=== PATIENT | female | born 1970 | race Caucasian/White ===

== ENCOUNTER → 2016-08-01 | Outpatient (CLI) | payer BC, OTHER | END | disposition home or self-care (01) | LOC: GMAH 12:32 | PROVIDERS: ATTEND Family Medicine | DX: R03.0 Elevated blood-pressure reading, without diagnosis of hypertension (principal) ==

== ENCOUNTER 2016-08-23 11:27 | Emergency (ER) | payer BC ==
--- NOTE | 2016-08-23 11:42 | ED.PDOC ---
History of Present Illness - General Chief Complaint: Chest Pain/[place] Stated Complaint: chest and back discomfort Time Seen by Provider: 08/23/16 11:41 Source: patient, RN notes reviewed, Vital Signs reviewed Additional Information: Patient with vague history of upper back soreness radiating anteriorly. She says it is worse with ambulation and it has progressively worsened over the past few days. 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 She went to the clinic who sent her here to the ER for an evaluation given concern for possible ACS and evaluation of tachycardia. Pt reports long-standing history of tachycardia (unexplained), anxiety, and HTN. She was recently switched to a new antihypertensive and she was wondering if that had something to do with her symptoms. Her symptoms are reproducible with light palpation. She is not in extremis but she showed some mild discomfort upon arrival to ER. After over an hour of observation and rest she reported feeling better. - History of Present Illness Timing/Duration: unsure Severity: moderate Improving Factors: rest Worsening Factors: movement Associated Symptoms: other - mostly complaining of anxiety and upper back soreness Allergies/Adverse Reactions: Allergies NO KNOWN ALLERGY Allergy (Verified 08/23/16 11:40) Home Medications: Ambulatory Orders Azilsartan Medoxomil-Chlorthal [Edarbyclor] 1 tab PO DAILY 08/23/16 Review of Systems - Review of Systems Constitutional: States: no symptoms reported EENTM: States: no symptoms reported Respiratory: States: no symptoms reported - denies dyspnea Cardiology: States: see HPI Gastrointestinal/Abdominal: States: see HPI - some vague abdominal discomfort Genitourinary: States: no symptoms reported Musculoskeletal: States: see HPI, back pain Skin: States: no symptoms reported Neurological: States: see HPI, anxiety Endocrine: States: no symptoms reported Hematologic/Lymphatic: States: no symptoms reported Past Medical History (General) - Patient Medical History Hx Hypertension: Yes Hx Other PMH: Yes - reported history of anxiety Family Medical History - Family History Mother Family History: Unknown Living Status: Unknown Physical Exam - Physical Exam General Appearance: Agitated - mild, Anxious, Well Nourished - , overweight Eye Exam: bilateral normal Ears, Nose, Throat: hearing grossly normal, normal ENT inspection, normal pharynx Neck: non-tender, full range of motion, supple Respiratory: no respiratory distress, no accessory muscle use Cardiovascular/Chest: tachycardia Gastrointestinal/Abdominal: soft Back Exam: normal inspection, other - grossly tender to light palpation suggestive of myofascial and/or costochondritic pain Extremity: normal range of motion, non-tender, normal inspection Neurologic: artificial plastic eye maker II-XII nml as tested, no motor/sensory deficits, alert, other - appeared agitated at times with poor eye contact. Reported that she didn't want to be here but was sent by the clinic. When she left the ER she was telling her friend (with liberal use of the F-word) that she didn't even want to come to the ER. Skin Exam: normal color Progress - Progress Progress: 08/23/16 11:42 Pt with vague complaint of band-like diaphragmatic soreness with radiation to bilateral upper back. Symptoms worse with laying down and activity. She reports chronic tachycardia. She was recently started on an antihypertensive combination. She does report occasional anxiety. Duration of symptoms - gradually building up over the past few days. Initial EKG with sinus tachycardia 128 bpm and no evidence of STEMI. 08/23/16 11:45 Broad DDx to include ACS, PE, metabolic abnormality, Biliary etiology ( Cholelithiasis, Dyskinesia), Pleurisy, or other Cardiopulmonary or GI etiology. Will start work-up with CBC, CMP, Chest X-ray, d-dimer, BNP, U/A, UDS, and TSH. Will provide support with 1 liter NS and consider a dose of Ativan if unimproved in the next 30 to 45 minutes or sooner upon patient request. 08/23/16 13:10 Labs and x-ray reviewed with patient. She denies taking any illicit drugs or OTC pseudoephedrine that could explain a positive UDS for amphetamines. She has no evidence of ACS, or PE on labs and her CBC, TSH, and CMP are essentially normal. She has reproducible discomfort on exam but she is overall more comfortable than when she arrived. Pt offered Toradol and Ativan and she declined. Pt is stable for discharge home with recommendation to follow-up with PCM and return to ER if condition worsens. Pt agreeable to plan. A friend came to pick her up from the ER. 08/23/16 13:33 Pt's mood and affect concerning for possible substance abuse given UDS finding. But, since patient does not appear to be at risk of harming herself or others, and given her denial of any illicit drug use, Patient suitable for discharge to home with strict return precautions. - Results/Orders Results/Orders: Laboratory Results - last 24 hr 08/23/16 08/23/16 11:49 11:54 WBC 10.7 RBC 5.20 Hgb 14.7 Hct 43.7 MCV 84.1 MCH 28.3 MCHC 33.6 RDW 14.0 Plt Count 380 MPV 7.2 L Absolute Neuts (auto) 7.00 H Absolute Lymphs (auto) 2.70 Absolute Monos (auto) 0.60 Absolute Eos (auto) 0.30 Absolute Basos (auto) 0.10 Neutrophils % 65.3 Lymphocytes % 24.9 Monocytes % 5.9 Eosinophils % 2.8 Basophils % 1.1 D-Dimer, Quantitative < 230 Sodium 135 Potassium 3.8 Chloride 102 Carbon Dioxide 21 Anion Gap 15.8 BUN 17 Creatinine 0.79 BUN/Creatinine Ratio 21.5 H Random Glucose 121 H Serum Osmolality 272.9 L Calcium 9.5 Total Bilirubin 0.3 AST 26 ALT 22 Alkaline Phosphatase 48 Creatine Kinase 73 CK-MB (CK-2) 5.0 H* CK-MB (CK-2) % Not Reportable Troponin I < 0.02 B-Natriuretic Peptide < 5.0 Serum Total Protein 7.6 Albumin 3.9 Globulin 3.7 H Albumin/Globulin Ratio 1.1 TSH 2.02 Urine Color Yellow Urine Appearance Clear Urine pH 6.0 Ur Specific [place] 1.010 Urine Protein Negative Urine Glucose (UA) Negative Urine Ketones Negative Urine Blood Moderate H Urine Nitrite Negative Urine Bilirubin Negative Urine Urobilinogen 0.2 Ur Leukocyte Esterase Negative Urine RBC 5-10 H Urine WBC 0 Ur Epithelial Cells 1-3 Urine Bacteria 0 Urine Opiates Screen Negative Urine Barbiturates Negative Ur Phencyclidine Scrn Negative U Amphetamin/Meth Scrn Positive H U Benzodiazepines Scrn Negative U Cocaine Metab Screen Negative U Cannabinoids Screen Negative - EKG/XRAY/CT EKG: Sinus, Tachy - 128 bpm with no evidence of STEMI XRAY: chest - no acute abnormalities seen Departure - Departure Clinical Impression: Tachycardia, Costochondritis, Anxiety Time of Disposition: 13:22 Disposition: Discharge to Home or Self Care Condition: Fair Departure Forms: ED Discharge - Pt. Copy, Patient Portal Self Enrollment Referrals: Miguel A Burroughs MD [Primary Care Provider] - 1-5 Days Home Medications: Ambulatory Orders Azilsartan Medoxomil-Chlorthal [Edarbyclor] 1 tab PO DAILY 08/23/16 Additional Instructions: Return to ER if condition worsens. Try over the counter ibuprofen/Advil (follow label instructions) for discomfort. Follow-up with primary care provider if condition persists.
[2016-08-23] MEDS ORDERED: SODIUM CHLORIDE 0.9% 1000ML 1,000 ML IVS ONE (11:43)
--- NOTE | 2016-08-23 11:59 | RAD ---
PROCEDURE: Chest,2 Views CLINICAL HISTORY: chest discomfort INDICATION: Same as above COMPARISON: None TECHNIQUE: PA and and lateral chest radiographs were obtained. FINDINGS: The lung ballard are well inflated. There are no discrete airspace infiltrates, pneumothoraces or pleural effusions. The pulmonary vascularity is normal The cardiomediastinal silhouette is unremarkable for patient's age and sex. IMPRESSION: There is no acute pleural-parenchymal process seen in the imaged lung ballard. Place of interpretation: Teleradiology. Electronically signed by: Idris Salazar MD 08/23/2016 11:58 AM TRAFFIC SURVEY TECHNICIAN
[2016-08-23 13:35] VITALS: BP 123/78; TEMP 98.2; O2SAT 100
== END 2016-08-23 13:30 | disposition home or self-care (01) ==
LOC: ER 11:27
DX: M94.0 Chondrocostal junction syndrome [Tietze] (principal); R00.0 Tachycardia, unspecified; F41.9 Anxiety disorder, unspecified

== ENCOUNTER → 2016-10-02 | Outpatient (CLI) | payer BC | LOC: SL 15:48 | PROVIDERS: ATTEND Family Medicine | DX: G47.30 Sleep apnea, unspecified (principal); R06.83 Snoring; I10 Essential (primary) hypertension ==

== ENCOUNTER → 2016-12-23 | Outpatient (CLI) | payer BC | LOC: SL 20:30 | PROVIDERS: ATTEND Family Medicine | DX: G47.39 Other sleep apnea (principal); I10 Essential (primary) hypertension; R06.83 Snoring; G47.10 Hypersomnia, unspecified ==

== ENCOUNTER → 2017-07-20 | Outpatient (CLI) | payer BC ==
--- NOTE | 2017-07-20 12:06 | US ---
EXAM DESCRIPTION: Gall Bladder CLINICAL HISTORY: RUQ positive Anders's sign COMPARISON: None Available. TECHNIQUE: Right upper quadrant ultrasound] FINDINGS: Hepatic steatosis is observed. There is no bile duct dilatation. The common bile duct measures 2.5 mm. The gallbladder is normal and contains no stones. Portions of the pancreas seen appear normal The upper abdominal aorta and the inferior vena cava are poorly visualized. The right kidney is normal in size, shape, and echotexture. IMPRESSION: Hepatic steatosis is observed. Exam is otherwise unremarkable. Electronically signed by: Raul Benito MD 07/20/2017 12:[address]PERVISOR
== END ==
LOC: LAB.O 10:56
PROVIDERS: ATTEND Nurse Practitioner Family
DX: R10.11 Right upper quadrant pain (principal); K76.0 Fatty (change of) liver, not elsewhere classified

== ENCOUNTER → 2018-06-21 | Outpatient (CLI) | payer BC ==
--- NOTE | 2018-06-21 12:40 | CT ---
EXAM DESCRIPTION: CT ABDOMEN AND PELVIS WITH CONTRAST CLINICAL HISTORY: K57.32 left lower quadrant pain, history of diverticulitis COMPARISON: None Available. TECHNIQUE: CT of the abdomen and pelvis are performed during IV bolus administration of routine adult dose of nonionic iodinated contrast. No oral contrast. FINDINGS: In the lower chest, the lung bases are clear. Heart size is normal. CT abdomen The liver, spleen, pancreas, gallbladder, adrenal glands, stomach and kidneys are normal in appearance. No inflammation around the pancreas. No renal stones or hydronephrosis. No bowel dilatation to suggest obstruction. Inflammatory changes are seen around the proximal descending colon centered around a diverticulum consistent with acute focal diverticulitis. Small fluid gas collection is seen extending cephalad from the inflamed diverticulum consistent with microperforation and small microabscess. This measures 1.2 cm. No free intraperitoneal gas is seen. No free air or free fluid. CT pelvis Appendix is not identified. No inflammation around the cecum or terminal ileum or sigmoid colon. There is extensive sigmoid diverticulosis. Bladder and distal ureters are negative for stones. Normal enhancement of pelvic vessels. No inguinal or lower pelvic adenopathy. Uterus and ovaries appear normal. Bone window images are negative for fracture or lytic lesion. Coronal and sagittal reformatted images confirm the findings. Degenerative disc disease at L5-S1 with neural foraminal narrowing. Moderate degenerative changes in the lower T-spine. IMPRESSION: Acute diverticulitis of the proximal descending colon with focal microperforation/microabscess 1.2 cm. This exam was performed according to our departmental dose-optimization program, which includes automated exposure control, adjustment of the mA and/or kV according to patient size and/or use of iterative reconstruction technique. Total DLP equals 1527.39 mGycm. Electronically signed by: Jin Alba MD 06/21/2018 12:39 PM DISASTER RECOVERY CONSULTANT
== END ==
LOC: LAB.O 11:12
PROVIDERS: ATTEND Emergency Medicine
DX: K57.32 Diverticulitis of large intestine without perforation or abscess without bleeding (principal)

== ENCOUNTER 2018-06-23 11:16 | Inpatient (IN) | payer BC ==
--- NOTE | 2018-06-23 11:18 | HP ---
SUPERVISING PHYSICIAN: Bill Franco M.D. CHIEF COMPLAINT: Abdominal pain. HISTORY OF PRESENT ILLNESS: This is a 48 year-old female patient who has had left sided abdominal pain for about a week. It started some time last week and she thought she was constipated, although she does not have a history of constipation. She took some fiber on Thursday and , and by Thursday her pain was so bad that she went to see the nurse practitioner at her physician's office. She put her on Cipro and Flagyl. Over the weekend she had some diarrhea which she associated with the medications and on Thursday went back to see Dr. Rishi Zacarias. He sent her to the hospital to have a CAT scan. The CAT scan showed acute diverticulitis of the proximal descending colon with focal microperforation/microabscess 1.2 cm. He sent her to see Dr. Arizmendi and has pain was quite intense, and had actually worsened over the last 2 days and he sent her to the hospital for a direct admission. She was admitted to the hospital and labs were drawn. PAST MEDICAL HISTORY: 1. Hypertension. 2. Gastroesophageal reflux disease. 3. Rheumatoid arthritis. PAST SURGICAL HISTORY: 1. Appendectomy. 2. Tubal ligation. 3. Tonsillectomy. 4. Trigger finger surgery of her right hand. OUTPATIENT MEDICATIONS: 1. Hydroxychloroquine sulfate. 2. Leflunomide. 3. Desvenlafaxine. ALLERGIES: NO KNOWN DRUG ALLERGIES. 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 She lives in [place]. She denies any tobacco, ETOH or illicit drug use. REVIEW OF SYSTEMS: GENERAL: Positive for low-grade fever and fatigue. Negative for weight changes. HEENT: Negative for sinus pain, ear pain, vision changes or sore throat. RESPIRATORY: Negative for coughing, wheezing or shortness of breath. CARDIAC: Negative for chest pains, palpitations or tachycardia. GASTROINTESTINAL: As per History of Present Illness. GENITOURINARY: Negative for polyuria, dysuria and hematuria. NEUROLOGIC: Negative for headache, seizures or dizziness. PHYSICAL EXAMINATION: VITAL SIGNS: Temperature 97.8, pulse rate 64, blood pressure 133/69, respiratory rate 18, O2 sat 96% on room air. GENERAL: This is a 48 year-old obese female lying in her hospital bed. She is in no acute distress. HEENT: Normocephalic and atraumatic. Pupils are equal and reactive. Oropharynx is clear. NECK: Supple without mass. RESPIRATORY: Essentially clear to auscultation bilaterally. CHEST: There is equal rise and fall of the chest with inspiration and expiration. GASTROINTESTINAL: Abdomen is soft. It is diffusely tender especially in the left upper and left lower quadrant. There is guarding but there is no rebound tenderness. Bowel sounds are hypoactive. EXTREMITIES: No clubbing, cyanosis or edema. NEUROLOGIC: She is awake, alert and oriented times three. Cranial nerves II- XII are grossly intact. LABORATORY: WBCs are 7 with hemoglobin 12 and hematocrit 35.9. Electrolytes are basically within normal limits. Serum osmolality is 270.6. Liver enzymes are within normal limits. CT is as per History of Present Illness. ASSESSMENT: 1. Acute diverticulitis of the proximal descending colon with focal microperforation/ microabscess 1.2 cm. 2. Abdominal pain times 1 week most likely secondary to #1. 3. Gastroesophageal reflux disease. 4. Rheumatoid arthritis on disease modifying therapy 5. Hypertension, stable on medications. PLAN: We will admit the patient to the hospital. She will be placed on bowel rest. I have given her some primary IV fluids as well as some pain medication. She will have Lovenox for DVT prophylaxis as well as a PPI for ulcer prophylaxis. I have consulted Dr. Arizmendi. Will defer to him on recommendations for the patient's care. I have ordered lab for in the morning as well as an abdominal x-ray. She has also got antiemetics. I will also give her Levaquin and Metronidazole IV. We will continue to monitor closely and follow as needed. Dr. Franco is the collaborating physician available for consultation. #[id number] [facility]
[2018-06-23] MEDS ORDERED: SODIUM CHLORIDE 0.9% (FLUSH) 10 ML SYG IV PRN (11:32)
[2018-06-23] MEDS: levoFLOXacin 750MG IV 750 MG in PREMIX BAG 1 BAG IVPB SCH (12:19)
[2018-06-23] MEDS: IV SET AND CAP CHANGE INJ INJ SCH (12:19)
[2018-06-23] MEDS: PANTOPRAZOLE SODIUM IV 40 MG VIAL IV SCH (12:19)
[2018-06-23] MEDS ORDERED: HYDROmorphone HCL INJ 2 MG/ML VIAL IV PRN ×2 (12:52→16:01)
[2018-06-23] MEDS ORDERED: metroNIDAZOLE IV PREMIX 500MG 100 ML IVPB ONE ×2 (13:40→20:02)
[2018-06-23] MEDS: metroNIDAZOLE IV PREMIX 500MG 500 MG in PREMIX BAG 1 BAG IVPB SCH ×2 (14:08→21:32)
[2018-06-23] MEDS ORDERED: HYDROmorphone HCL INJ 2 MG/ML VIAL IV ONE (16:01)
[2018-06-23] MEDS: KCL 20MEQ/D5 1/2NS 1,000 ML IVS PRN (16:34)
[2018-06-23] MEDS ORDERED: SODIUM CHL 0.9% 100ML MINI-BAG 100 ML IVPB ONE ×2 (17:47→20:02)
[2018-06-23] MEDS ORDERED: AMPICILLIN SODIUM INJ 2 GM VIAL ONE ×2 (17:47→20:01)
[2018-06-23] MEDS: AMPICILLIN INJ 2GM 2 GM in SODIUM CHL 0.9% 100ML MINI-BAG 100 ML IVPB SCH ×2 (18:02→22:40)
[2018-06-23] MEDS: HYDROmorphone HCL INJ 2 MG/ML VIAL IV PRN ×2 (18:36→21:27)
[2018-06-23] MEDS: BIFIDOBACTERIUM INFANTIS 4 MG CAP PO SCH (20:44)
[2018-06-23] MEDS: ENOXAPARIN SODIUM 40 MG/0.4 ML SYG SUBCU SCH (20:44)
[2018-06-23] MEDS: SODIUM CHLORIDE 0.9% (FLUSH) 10 ML SYG IV SCH (20:47)
[2018-06-23] MEDS: ONDANSETRON INJ 4 MG/2 ML VIAL IV PRN (21:27)
[2018-06-24] MEDS ORDERED: AMPICILLIN SODIUM INJ 2 GM VIAL ONE ×5 (02:00→20:36)
[2018-06-24] MEDS ORDERED: SODIUM CHL 0.9% 100ML MINI-BAG 100 ML IVPB ONE ×3 (02:00→16:52)
[2018-06-24] MEDS: HYDROmorphone HCL INJ 2 MG/ML VIAL IV PRN ×6 (02:04→20:03)
[2018-06-24] MEDS: KCL 20MEQ/D5 1/2NS 1,000 ML IVS PRN ×2 (03:28→19:54)
[2018-06-24] MEDS ORDERED: metroNIDAZOLE IV PREMIX 500MG 100 ML IVPB ONE ×4 (04:42→20:37)
[2018-06-24] MEDS: AMPICILLIN INJ 2GM 2 GM in SODIUM CHL 0.9% 100ML MINI-BAG 100 ML IVPB SCH ×4 (04:47→22:24)
[2018-06-24] MEDS: ONDANSETRON INJ 4 MG/2 ML VIAL IV PRN ×3 (05:06→19:58)
[2018-06-24] MEDS: metroNIDAZOLE IV PREMIX 500MG 500 MG in PREMIX BAG 1 BAG IVPB SCH ×3 (05:51→21:07)
--- NOTE | 2018-06-24 08:02 | RAD ---
Abdomen 2 views INDICATION: Abdominal pain IMPRESSION: Lung bases are clear. No free air or pneumatosis. Unremarkable bowel gas pattern. No evidence of obstruction. Several small calcifications in the left pelvis possibly phleboliths. Calcification over the left lower sacrum is indeterminate correlate with symptoms. Otherwise no evidence of acute process Electronically signed by: Danny Lee MD 06/24/2018 8:01 AM PLASTIC MOLDER
[2018-06-24] MEDS: BIFIDOBACTERIUM INFANTIS 4 MG CAP PO SCH ×2 (10:04→21:04)
[2018-06-24] MEDS: SODIUM CHLORIDE 0.9% (FLUSH) 10 ML SYG IV SCH ×2 (10:05→21:04)
[2018-06-24] MEDS: levoFLOXacin 750MG IV 750 MG in PREMIX BAG 1 BAG IVPB SCH (12:10)
[2018-06-24] MEDS: PANTOPRAZOLE SODIUM IV 40 MG VIAL IV SCH (12:10)
[2018-06-24] MEDS ORDERED: ALUMINUM & MAGNESIUM HYDROXIDE 30 ML UD ONE (17:20)
--- NOTE | 2018-06-24 17:42 | PN ---
DATE: 06/24/18 SUPERVISING PHYSICIAN: Bill Franco M.D. SUBJECTIVE: The patient is lying in her bed. Her family is at the bedside. She denies any nausea, vomiting or diarrhea. She feels like she is tolerating her clear liquids without any problem, but she still has quite a bit of pain in her abdomen. She is trying to titrate her medications down. OBJECTIVE: VITAL SIGNS: Temperature 97.9, heart rate 91, blood pressure 136/87, respiratory rate 18, O2 sat 96% on room air. RESPIRATORY: Essentially clear to auscultation bilaterally. CARDIAC: Regular rate and rhythm. GASTROINTESTINAL: Abdomen is soft but it is very tender to the left upper and left lower quadrant. It is not as tender as yesterday but she still has quite a bit of pain with palpation. There is no rebound tenderness but she does have some guarding. NEUROLOGIC: She is awake, alert and oriented times three. LABORATORY: WBCs are 7,000 with hemoglobin 11.3, hematocrit 34.1. Electrolytes are basically within normal limits except her calcium is slightly low at 8.3. Abdominal x-ray shows lung bases are clear. No free air or pneumatosis. Unremarkable bowel gas pattern. No evidence of obstruction. Several small calcifications in the left pelvis possibly phleboliths. Calcification of the left lower sacrum is indeterminate. Otherwise no evidence of acute process. All other labs and films have been reviewed via the EMR. ASSESSMENT: 1. Acute diverticulitis of the proximal descending colon with focal microperforation/ microabscess 1.2 cm. 2. Abdominal pain times 1 week most likely secondary to #1. 3. Gastroesophageal reflux disease. 4. Rheumatoid arthritis on disease modifying therapy 5. Hypertension, stable on medications. PLAN: We will continue present supportive care. I have decreased her IV fluids and she will have clear liquids the rest of today. Will start her on a full liquid tomorrow. If she has no pain and tolerates her diet, she can be discharged home on antibiotics and a low residual diet with close followup with Dr. Arizmendi after discharge. We discussed her pain medications and she is trying to wean herself off of those at this time. I will hold on labs for in the morning as those are much improved. We will watch her clinically for her discharge. Otherwise will continue to monitor closely and follow as needed. Dr. Franco is the collaborating physician available for consultation. #[id number] [facility]
[2018-06-24] MEDS ORDERED: SODIUM CHL 0.9% 100ML MINI-BAG 200 ML IVPB ONE (20:36)
[2018-06-24] MEDS: ENOXAPARIN SODIUM 40 MG/0.4 ML SYG SUBCU SCH (21:04)
[2018-06-25] MEDS: HYDROmorphone HCL INJ 2 MG/ML VIAL IV PRN ×3 (02:10→20:32)
[2018-06-25] MEDS: AMPICILLIN INJ 2GM 2 GM in SODIUM CHL 0.9% 100ML MINI-BAG 100 ML IVPB SCH ×4 (04:06→22:23)
[2018-06-25] MEDS: metroNIDAZOLE IV PREMIX 500MG 500 MG in PREMIX BAG 1 BAG IVPB SCH ×4 (05:47→21:43)
[2018-06-25] MEDS: KCL 20MEQ/D5 1/2NS 1,000 ML IVS PRN ×2 (08:11→20:30)
[2018-06-25] MEDS: BIFIDOBACTERIUM INFANTIS 4 MG CAP PO SCH ×2 (09:48→20:30)
[2018-06-25] MEDS: SODIUM CHLORIDE 0.9% (FLUSH) 10 ML SYG IV SCH ×2 (09:49→20:32)
[2018-06-25] MEDS ORDERED: SODIUM CHL 0.9% 100ML MINI-BAG 100 ML IVPB ONE ×4 (10:22→20:20)
[2018-06-25] MEDS ORDERED: AMPICILLIN SODIUM INJ 2 GM VIAL ONE ×3 (10:22→20:20)
[2018-06-25] MEDS: DESVENLAFAXINE SUCCINATE 100 MG PO SCH (11:05)
[2018-06-25] MEDS: LOSARTAN HCTZ PO SCH (11:06)
[2018-06-25] MEDS: FLUCONAZOLE 100 MG TAB PO SCH (11:08)
[2018-06-25] MEDS: NYSTATIN POWDER 15GM BTTL TOP SCH ×3 (12:23→20:31)
[2018-06-25] MEDS: PANTOPRAZOLE SODIUM IV 40 MG VIAL IV SCH (12:28)
[2018-06-25] MEDS: levoFLOXacin 750MG IV 750 MG in PREMIX BAG 1 BAG IVPB SCH (12:42)
[2018-06-25] MEDS: KETOROLAC TROMETHAMINE INJ 30 MG/ML VIAL IV SCH ×2 (12:43→17:59)
[2018-06-25] MEDS ORDERED: metroNIDAZOLE IV PREMIX 500MG 100 ML IVPB ONE ×3 (13:25→20:20)
--- NOTE | 2018-06-25 13:28 | PN ---
SUPERVISING PHYSICIAN: Bill Franco M.D. DATE: 06/25/18 SUBJECTIVE: The patient is lying in her bed. She and her mother are trying to reposition the patient in bed. She feels much better and has tolerated her full liquid diet without any issues. She is still having some pain issues, not so much in her abdomen, but some rib pain and she believes that is from lying around too long. It hurts her to get up and move around. She also said she had not had a bowel movement in a couple of days, but she also has had very little to eat in the last week. We discussed pain issues in her abdomen as well as cutting down on her pain medications, that I would like her to go home when she is not on any narcotics and she agreed. She said she would rather just go home to where she could have Tylenol and realizes this is a very slow process. OBJECTIVE: VITAL SIGNS: Afebrile with temperature 98. Heart rate 93. Blood pressure 112/72. Respiratory rate 20. O2 saturation 97% on room air. RESPIRATORY: Essentially clear to auscultation bilaterally. CARDIAC: Regular rate and rhythm. GASTROINTESTINAL: Abdomen is rounded, but soft. It is very tender in the left upper quadrant, somewhat less tender in the left lower quadrant. There is no rebound tenderness, but there is guarding. NEUROLOGIC: She is awake, alert and oriented times three. LABORATORY: CBC is basically within normal limits. Electrolytes are within normal limits. BUN is less than 5, creatinine 0.54. Calcium is slightly low at 8.3. All other labs and films have been reviewed via the EMR. ASSESSMENT: 1. Acute diverticulitis of the proximal descending colon with focal microperforation/ microabscess 1.2 cm. 2. Abdominal pain times 1 week most likely secondary to #1. 3. Gastroesophageal reflux disease. 4. Rheumatoid arthritis on disease modifying therapy 5. Hypertension, stable on medications. PLAN: We will continue present supportive care. We are weaning her down off of her Dilaudid and have changed her to [place]. I am also going to give her some Toradol for what seems like musculoskeletal pain in her left rib area. I will give her 4 doses of that. She will continue with her antibiotics and preferably will be off pain medications when she leaves here. She will have to be on a low-residue diet and followup with Dr. Arizmendi after she completes 2 weeks of antibiotics. Otherwise, we will continue to monitor the patient and follow as needed. #[id number] [facility]
[2018-06-25] MEDS: ENOXAPARIN SODIUM 40 MG/0.4 ML SYG SUBCU SCH (20:29)
[2018-06-25] MEDS: ALPRAZolam 0.5 MG TAB PO PRN (20:30)
[2018-06-26] MEDS: KETOROLAC TROMETHAMINE INJ 30 MG/ML VIAL IV SCH ×2 (00:06→06:19)
[2018-06-26] MEDS: AMPICILLIN INJ 2GM 2 GM in SODIUM CHL 0.9% 100ML MINI-BAG 100 ML IVPB SCH ×3 (04:08→17:16)
[2018-06-26] MEDS ORDERED: SODIUM CHL 0.9% 100ML MINI-BAG 100 ML IVPB ONE ×3 (04:30→19:33)
[2018-06-26] MEDS ORDERED: AMPICILLIN SODIUM INJ 2 GM VIAL IVPB ONE (04:30)
[2018-06-26] MEDS: metroNIDAZOLE IV PREMIX 500MG 500 MG in PREMIX BAG 1 BAG IVPB SCH ×3 (05:35→22:19)
[2018-06-26] MEDS: KCL 20MEQ/D5 1/2NS 1,000 ML IVS PRN (08:54)
[2018-06-26] MEDS: BIFIDOBACTERIUM INFANTIS 4 MG CAP PO SCH ×2 (09:25→21:06)
[2018-06-26] MEDS: FLUCONAZOLE 100 MG TAB PO SCH (09:25)
[2018-06-26] MEDS: LOSARTAN HCTZ PO SCH (09:28)
[2018-06-26] MEDS: DESVENLAFAXINE SUCCINATE 100 MG PO SCH (09:28)
[2018-06-26] MEDS: SODIUM CHLORIDE 0.9% (FLUSH) 10 ML SYG IV SCH ×2 (09:53→21:07)
[2018-06-26] MEDS: NYSTATIN POWDER 15GM BTTL TOP SCH ×4 (09:53→21:12)
[2018-06-26] MEDS ORDERED: AMPICILLIN SODIUM INJ 2 GM VIAL ONE ×3 (10:12→19:33)
[2018-06-26] MEDS ORDERED: SODIUM CHL 0.9% 100ML MINI-BAG 0 ML IVPB ONE (10:12)
[2018-06-26] MEDS: levoFLOXacin 750MG IV 750 MG in PREMIX BAG 1 BAG IVPB SCH (12:00)
[2018-06-26] MEDS ORDERED: metroNIDAZOLE IV PREMIX 500MG 0 ML IVPB ONE (14:16)
[2018-06-26] MEDS: PANTOPRAZOLE SODIUM IV 40 MG VIAL IV SCH (14:32)
[2018-06-26] MEDS: IV SET AND CAP CHANGE INJ INJ SCH (14:33)
[2018-06-26] MEDS ORDERED: SODIUM CHLORIDE 0.9% (FLUSH) 10 ML SYG IV ONE (18:30)
[2018-06-26] MEDS: ACETAMINOPHEN W/COD #3 TAB 1 EA TAB PO PRN (18:36)
[2018-06-26] MEDS ORDERED: metroNIDAZOLE IV PREMIX 500MG 100 ML IVPB ONE (19:34)
[2018-06-26] MEDS: ENOXAPARIN SODIUM 40 MG/0.4 ML SYG SUBCU SCH (21:06)
[2018-06-26] MEDS: AMPICILLIN 500 MG CAP PO SCH (22:20)
[2018-06-26] MEDS: metroNIDAZOLE 500 MG TAB PO SCH (22:20)
--- NOTE | 2018-06-26 22:26 | PN ---
DATE: 06/26/18 SUPERVISING PHYSICIAN: Bill Franco M.D. SUBJECTIVE: The patient has been advanced in her diet and still continues to have some pain, she notes, to the left lower quadrant, but not as intense as admission. She has been afebrile. She has been ambulating. She is looking forward to going home if possible. I did discuss with her today that will advance her to a low residual diet and work to get her off IV medicine for pain control to Tylenol #3, and hopefully if she does tolerate this later today she could possibly go home or if not tomorrow. OBJECTIVE: VITAL SIGNS: temperature 98.6, pulse 102, blood pressure 130/83, respirations 20, satting 97% on room air. I's and O's show a positive balance of 1180 with 2580 in, 1400 out. She has had 1 bowel movement that she described as mucousy. GENERAL: The patient is resting in a chair. Appears to be comfortable in no acute distress. She is alert. CHEST: Lungs were clear to auscultation. HEART: Regular rate and rhythm. ABDOMEN: Obese but soft to palpation but there is some pain noted on deep palpation to the left quadrant area. No rebound tenderness. No guarding. No peritoneal signs. EXTREMITIES: Without any clubbing, cyanosis or edema. NEUROLOGIC: She is alert and oriented times three. LABORATORY: Her labs today show that she has been stable for 2 days now with no repeat labs. RADIOLOGY: There has been no repeat radiographic studies. ASSESSMENT: 1. Acute diverticulitis of the proximal descending colon with focal microperforation/ microabscess measuring 1.2 cm responding well to medical conservative treatment measures. 2. Abdominal pain secondary to #1, improving with treatment. 3. Gastroesophageal reflux disease, stable. 4. Rheumatoid arthritis on disease modifying therapy. 5. Hypertension, stable on medications. PLAN: I was trying to hope to get her home today, however the patient still has a little bit of pain with meals and is a little anxious. She was able to transition off the Dilaudid and onto oral medications. I again discussed with her ambulation as much as possible and that we will hopefully be able to discharge tomorrow. I have called prescriptions in for discharge anticipation tomorrow to [facility] and hopefully she can discharge on pain management with Tylenol #3. Until she can discharge to outpatient management will continue to monitor and treat as needed. #[id number] [facility]
[2018-06-27] MEDS: ACETAMINOPHEN W/COD #3 TAB 1 EA TAB PO PRN ×2 (00:40→04:14)
[2018-06-27] MEDS: AMPICILLIN 500 MG CAP PO SCH ×2 (04:14→10:23)
[2018-06-27] MEDS: ALPRAZolam 0.5 MG TAB PO PRN (04:16)
[2018-06-27] MEDS: metroNIDAZOLE 500 MG TAB PO SCH (06:11)
[2018-06-27 06:59] VITALS: O2SAT 99
[2018-06-27] MEDS: DESVENLAFAXINE SUCCINATE 100 MG PO SCH (09:12)
[2018-06-27] MEDS: BIFIDOBACTERIUM INFANTIS 4 MG CAP PO SCH (09:12)
[2018-06-27] MEDS: LOSARTAN HCTZ PO SCH (09:12)
[2018-06-27] MEDS: FLUCONAZOLE 100 MG TAB PO SCH (09:12)
[2018-06-27] MEDS ORDERED: MAGNESIUM HYDROXIDE 30 ML UD PO ONE (09:22)
[2018-06-27] MEDS: SODIUM CHLORIDE 0.9% (FLUSH) 10 ML SYG IV SCH (10:23)
[2018-06-27] MEDS: NYSTATIN POWDER 15GM BTTL TOP SCH (10:23)
[2018-06-27 10:51] VITALS: BP 141/90; TEMP 98
--- NOTE | 2018-06-28 09:16 | DS ---
SUPERVISING PHYSICIAN: Bill Franco MD ADMISSION DIAGNOSIS: 1. Acute diverticulitis of the proximal descending colon with focal microperforation/ microabscess 1.2 cm. 2. Abdominal pain times 1 week, most likely secondary to #1. 3. Gastroesophageal reflux disease. 4. Rheumatoid arthritis, on disease modifying therapy 5. Hypertension, stable on medications. DISCHARGE DIAGNOSIS: 1. Acute diverticulitis of the proximal descending colon with focal microperforation/ microabscess measuring 1.2 cm, responded well to medical conservative treatment measures. 2. Abdominal pain secondary to #1, resolved after initiation of treatment. 3. Chronic gastroesophageal reflux disease, stable. 4. Rheumatoid arthritis, on disease modifying therapy. 5. Hypertension, stable on medications. REASON FOR HOSPITALIZATION: This is a 48 year-old female patient who has had left sided abdominal pain for about a week. It started some time last week and she thought she was constipated, although she does not have a history of constipation. She took some fiber on Thursday and , and by Thursday her pain was so bad that she went to see the nurse practitioner at her physician's office. She put her on Cipro and Flagyl. Over the weekend she had some diarrhea which she associated with the medications and on Thursday went back to see Dr. Rishi Zacarias. He sent her to the hospital to have a CAT scan. The CAT scan showed acute diverticulitis of the proximal descending colon with focal microperforation/microabscess 1.2 cm. He sent her to see Dr. Arizmendi and has pain was quite intense, and had actually worsened over the last 2 days and he sent her to the hospital for a direct admission. She was admitted to the hospital and labs were drawn. LABORATORY: White count on admission was 7,000 as well as at discharge. Hemoglobin and hematocrit stable at 11.3 and 34.1, respectively. Platelet count 436,000. Differential never did show a left shift. Chemistries showed normal electrolytes both on admission and at discharge with potassium 3.7, BUN less than 5, creatinine 0.54. Liver functions were all within normal limits. Urinalysis was within normal limits. MICROBIOLOGY: No specimens submitted. RADIOLOGY: She had a single abdominal x-ray which showed lung bases clear, no free air or pneumatosis, unremarkable bowel gas pattern, no evidence of obstruction. Otherwise, no acute process. Please see that report for full details. She had an abdominopelvic CT on 06/21/18, two days prior to admission and that CT showed acute diverticulitis in the proximal descending colon with focal microperforation/abscess of 1.2 cm. Please refer to that report for full details. HOSPITAL COURSE: Ms. Rodriges was admitted for acute diverticulitis with possible abscess. She was started on medical therapy with antibiotics including ampicillin, Levaquin and Flagyl. She was made NPO, given fluids and pain management. Her diet was advanced to clear liquid and then to a low residual diet. Her pain had resolved, she was ambulating, tolerating diet and having bowel movements. She was afebrile and stable with vital signs at discharge showing temperature 98.0, pulse 94, blood pressure 141/90, respirations 20, oxygen saturation 99% on room air. It was felt that she had clinically progressed to a stable condition and could continue with outpatient management and followup with Dr. Arizmendi. PHYSICAL EXAMINATION ON DISCHARGE: GENERAL: The patient was resting comfortably and appeared to be in no acute distress. CHEST: Clear to auscultation bilaterally. HEART: Regular rate and rhythm. ABDOMEN: Soft, nontender. No rebound tenderness. No peritoneal signs. Bowel sounds present. EXTREMITIES: Without any cyanosis, clubbing or edema. NEUROLOGIC: She was alert and oriented x3. PLAN: Ms. Rodriges was discharged on 06/27/18 with instructions to followup with Dr. Ruvalcaba and Dr. Arizmendi next week, to call their offices on Thursday to schedule appointments. She was encouraged to push p.o. fluids to prevent dehydration. She was instructed on a low fiber, low residual diet. She was to take her new medications as prescribed. She was instructed to return to the hospital should she have any concerning or worsening symptoms including increasing abdominal pain, fever, nausea or vomiting or changes concerning her bowels. Diet at discharge was low fiber, low residual. Activity to increase as tolerated. Prescriptions at discharge included: 1. Tylenol #3, 1 q.4h. as needed, #60, no refills. 2. Ampicillin 500 mg 4 times day, #28, no refills. 3. Diflucan tablet 150 mg once if development of yeast infection, no refills. 4. Levaquin 750 mg, #8, no refills. 5. Flagyl 500 mg 3 times a day, #21, no refills. 6. Nystatin 100,000 units per mL, 5 mL swish and swallow 4 times a day if thrush develops. 7. [id number] probiotic of choice. DISPOSITION: The patient was discharged to the care of . CONDITION AT DISCHARGE: Stable and improving. #[id number]
== END 2018-06-27 11:15 | disposition home or self-care (01) | DRG 392 ==
LOC: MS 11:16
PROVIDERS: ADMIT Nurse Practitioner Acute Care; ATTEND Nurse Practitioner Family
DX: K57.00 Diverticulitis of small intestine with perforation and abscess without bleeding (principal); I10 Essential (primary) hypertension; K21.9 Gastro-esophageal reflux disease without esophagitis; M06.9 Rheumatoid arthritis, unspecified

== ENCOUNTER → 2018-06-29 | Outpatient (CLI) | payer BC ==
--- NOTE | 2018-06-29 18:19 | CT ---
EXAM DESCRIPTION: Abdomen/Pelvis w/Contrast CLINICAL HISTORY: 48 years Female, DIVERTICULITIS COMPARISON: CT abdomen pelvis dated 06/21/2018. TECHNIQUE: Contiguous 3 mm axial images were obtained from lung bases to the level of proximal femora after the administration of intravenous and oral contrast. Sagittal and coronal reconstructions were reviewed. FINDINGS: The imaged lower thorax appears normal. The liver, gallbladder, pancreas and spleen appear normal. Bilateral adrenal glands and kidneys demonstrate no gross abnormality. The stomach is not well-distended limiting detailed evaluation. The small bowel loops appear normal. Changes of acute diverticulitis of the proximal descending colon are again identified which appear to have improved. Diverticulosis of the descending and sigmoid colon is noted. The urinary bladder is normal. The uterus and ovaries also appear normal. The abdominal aorta and inferior vena cava appear normal. No abnormally enlarged lymph nodes are seen. Mild degenerative changes are noted throughout the visualized bones. There are IMPRESSION: Improved inflammatory changes around the proximal descending colon compared to prior examination. This exam was performed according to our departmental dose-optimization program, which includes automated exposure control, adjustment of the mA and/or kV according to patient size and/or use of iterative reconstruction technique. Electronically signed by: Mando Chan MD 06/29/2018 6:17 PM ORNAMENTAL IRONWORKER
== END ==
LOC: LAB.O 17:15
PROVIDERS: ATTEND Nurse Practitioner Family
DX: K57.32 Diverticulitis of large intestine without perforation or abscess without bleeding (principal)

== ENCOUNTER → 2018-07-06 | Outpatient (CLI) | payer BC | LOC: LAB.O 15:30 | PROVIDERS: ATTEND General Practice | DX: R19.7 Diarrhea, unspecified (principal) ==

== ENCOUNTER → 2018-07-14 | Outpatient (CLI) | payer BC ==
--- NOTE | 2018-07-14 09:55 | CT ---
EXAM DESCRIPTION: CT ABDOMEN AND PELVIS WITHOUT AND WITH CONTRAST CLINICAL HISTORY: DIVERTICULITIS COMPARISON: Previous study June 29, 2018 TECHNIQUE: CT of the abdomen and pelvis are performed prior to and during IV bolus administration of routine adult dose of nonionic iodinated contrast. No oral contrast. FINDINGS: CT abdomen The lung bases are clear of infiltrate. Heart size is normal. Liver is normal in size and parenchymal appearance. No calcified stones in the gallbladder. Spleen, pancreas, and kidneys are unremarkable. There is no lymphadenopathy, inflammation, or free fluid observed. Only minimal residual inflammatory changes remain in the fat surrounding prominent diverticulum protruding from the wall of the proximal descending colon. Findings have improved since previous studies. No abscess or fluid collection. No free air in the peritoneal space to suggest perforation. No increasing inflammatory changes to suggest worsening or recurrence. Minimal hazy increased density in the small intestine mesentery with prominent lymph nodes suggest mild mesenteric panniculitis. This is is generally considered a benign self-limiting process or an incidental finding. After IV contrast administration, normal enhancement of the liver and spleen and pancreas. Normal enhancement of the renal cortex bilaterally. Normal enhancement of the abdominal vessels. No aortic aneurysm. Delayed images show normal contrast accumulation in the urinary collecting systems. CT pelvis No inflammation is seen around the cecum or terminal ileum or sigmoid colon. Appendix is not seen. No stones are seen in the distal ureters or bladder. Normal pelvic small bowel loops. No fracture or lytic lesion of the osseous structures. Postcontrast images show normal enhancement of the pelvic vessels. Uterus and ovaries appear normal. IMPRESSION: Minimal residual inflammatory changes around the proximal descending colon consistent with improving uncomplicated diverticulitis. This exam was performed according to our departmental dose-optimization program, which includes automated exposure control, adjustment of the mA and/or kV according to patient size and/or use of iterative reconstruction technique. Electronically signed by: Jin Alba MD 07/14/2018 9:53 AM SCREWHEAD STONER AND POLISHER
== END ==
LOC: CT 08:07
PROVIDERS: ATTEND General Practice
DX: K57.92 Diverticulitis of intestine, part unspecified, without perforation or abscess without bleeding (principal)

== ENCOUNTER 2018-08-13 14:43 | Emergency (ER) | payer BC ==
[2018-08-13] MEDS ORDERED: MORPHINE SULFATE INJ 10 MG/ML VIAL IV ONE (15:10)
[2018-08-13] MEDS ORDERED: PROCHLORPERAZINE INJ 10 MG/2 ML VIAL IV ONE (15:10)
[2018-08-13 15:12] VITALS: TEMP 99.8
--- NOTE | 2018-08-13 15:13 | ED.PDOC ---
History of Present Illness - General Chief Complaint: Abdominal Pain Stated Complaint: L abdominal discomfort Time Seen by Provider: 08/13/18 15:09 Information Source: patient Exam Limitations: no limitations - History of Present Illness Initial Comments: Marianela Rodriges 48 y/o female came to er with constant sharp left sided abdominal pain since this AM.Had sigmoid resection done after she had ruptured sigmoid diverticulitis in Jun 2018 and had surgery Thursday discharged 12 Aug 2018.Stated noted area left side to be more red and tender.Had multiple bowel movements since discharge. Abdominal Pain Onset Location: LLQ Pain Radiation: no radiation Quality: severe, steady, throbbing Timing/Duration: 1-3 hours Improving Factors: nothing Worsening Factors: nothing Associated Symptoms: other - see hpi Review of Systems - Review of Systems Constitutional: States: no symptoms reported EENTM: States: no symptoms reported Respiratory: States: no symptoms reported Cardiology: States: no symptoms reported Gastrointestinal/Abdominal: States: see HPI Genitourinary: States: no symptoms reported Musculoskeletal: States: no symptoms reported Skin: States: no symptoms reported Neurological: States: no symptoms reported Endocrine: States: no symptoms reported Past Medical History (General) - Patient Medical History Hx Seizures: No Hx Stroke: No Hx Asthma: No Hx of COPD: No Hx Congestive Heart Failure: No Hx Pacemaker: No Hx Hypertension: Yes Hx Diabetes: No Hx MRSA: No Surgical History: other - sigmoid resection;BTL - Vaccination History Hx Influenza Vaccination: No - Social History Hx Tobacco Use: Yes Hx Alcohol Use: No Hx Substance Use: No Hx Physical Abuse: No Hx Emotional Abuse: No Family Medical History - Family History Mother Family History: Unknown Living Status: Unknown Hx Family;Other: rheumatoid Arthritis -brother Physical Exam - Physical Exam General Appearance: Other - in pain Eyes, Ears, Nose, Throat Exam: normal ENT inspection Neck: non-tender, supple, normal inspection Respiratory: chest non-tender, lungs clear, normal breath sounds, no respiratory distress Cardiovascular/Chest: normal peripheral pulses, regular rate, rhythm, no murmur Peripheral Pulses: No deficit Gastrointestinal/Abdominal: normal bowel sounds Skin Exam: normal color, warm/dry, other - redness/tenderness left side abdomen w/o induration Progress - Progress Progress: 08/13/18 15:22 Vital Signs - 8 hr 08/13/18 14:50 Temperature 99.8 F H Pulse Rate [ 125 H Right Radial] Respiratory 24 Rate Blood Pressure 163/109 [Right Arm] O2 Sat by Pulse 98 Oximetry - Results/Orders Results/Orders: 08/13/18 15:10 IV Care:Saline Lock per Protoc QSHIFT 08/13/18 16:02 Hold Metformin x 48Hrs [id number] 08/13/18 16:05 Urine Culture Stat Laboratory Results - last 24 hr 08/13/18 08/13/18 08/13/18 15:10 15:10 16:05 WBC 7.1 RBC 3.40 L Hgb 10.1 L Hct 30.0 L MCV 88.1 MCH 29.6 MCHC 33.6 RDW 14.8 H Plt Count 371 MPV 7.4 Absolute Neuts (auto) 4.80 Absolute Lymphs (auto) 1.50 Absolute Monos (auto) 0.60 Absolute Eos (auto) 0.20 Absolute Basos (auto) 0.10 Neutrophils % 66.4 Lymphocytes % 21.3 Monocytes % 9.0 Eosinophils % 2.5 Basophils % 0.8 PT 8.9 L INR 0.90 PTT (SP) 25.3 Sodium 138 Potassium 3.1 L Chloride 105 Carbon Dioxide 22 Anion Gap 14.1 BUN < 5 L Creatinine 0.48 L BUN/Creatinine Ratio 10.4 Random Glucose 85 Serum Osmolality 271.5 L Lactic Acid 1.3 Calcium 8.3 L Magnesium 1.7 L Total Bilirubin 0.5 Direct Bilirubin 0.2 Indirect Bilirubin 0.3 AST 34 ALT 37 Alkaline Phosphatase 43 Creatine Kinase 188 H CK-MB (CK-2) 4.2 CK-MB (CK-2) % 2.23 Troponin I < 0.02 Serum Total Protein 6.4 Albumin 3.2 Urine Color Yellow Urine Appearance Sl cloudy Urine pH 6.5 Ur Specific [place] 1.010 Urine Protein Negative Urine Glucose (UA) Negative Urine Ketones Negative Urine Blood Moderate H Urine Nitrite Negative Urine Bilirubin Negative Urine Urobilinogen 0.2 Ur Leukocyte Esterase Small H Urine RBC 0 Urine WBC 3-5 H Ur Epithelial Cells 3-5 Urine Bacteria Rare Discuss test results with patient - EKG/XRAY/CT CT Ordered: Yes - abd/p-no free air or fluid post op changes,discoid atelectasis RLL Departure - Departure Clinical Impression: Cellulitis of abdominal wall, Status post partial resection of colon Time of Disposition: 17:40 Disposition: Discharge to Home or Self Care Condition: Fair Departure Forms: ED Discharge - Pt. Copy, Patient Portal Self Enrollment Instructions: Cellulitis (Skin Infection), Adult (DC) Referrals: Tristian Ruvalcaba MD [Primary Care Provider] - 1-2 Weeks Prescriptions: Acetamin W/Cod #3 Tab [Tylenol w/CODEINE #3] 1 ea PO Q4HR PRN #30 tab PRN Reason: Pain Clindamycin HCl 300 mg PO Q8HRS 7 Days #42 cap levoFLOXacin [Levaquin] 500 mg PO DAILY 7 Days #7 tab Home Medications: Ambulatory Orders Ciprofloxacin HCl [Ciprofloxacin Hydrochlori] 500 mg PO BID 06/23/18 Desvenlafaxine Succinate [Desvenlafaxine ER] 100 mg PO DAILY 06/23/18 Hydroxychloroquine Sulfate [Hydroxychloroquine Sulfat] 400 mg PO DAILY 06/23/18 Leflunomide 20 mg PO DAILY 06/23/18 Metronidazole 500 mg PO Q8HR 06/23/18 Losartan Potassium & Hydrochlo [Losartan Potassium/Hydroc 50-12.5 mg] 1 tab PO DAILY 06/25/18 Fluconazole [Diflucan Tab] 150 mg PO ONCE #1 tab 06/26/18 Levofloxacin [Levaquin] 750 mg PO DAILY #8 tablet 06/26/18 Nystatin (Mouth-Throat) [Nystatin] 5 ml MT QID #160 ml 06/26/18 metroNIDAZOLE [Flagyl] 500 mg PO TID #21 tab 06/26/18 Acetaminophen W/ Codeine [Tylenol W/ CODEINE #3] 1 ea PO Q4HR PRN #60 06/27/18 Ampicillin 500 mg PO QID #28 cap 06/27/18 Acetamin W/Cod #3 Tab [Tylenol w/CODEINE #3] 1 ea PO Q4HR PRN #30 tab 08/13/18 Clindamycin HCl 300 mg PO Q8HRS 7 Days #42 cap 08/13/18 levoFLOXacin [Levaquin] 500 mg PO DAILY 7 Days #7 tab 08/13/18 Additional Instructions: Return to Emergency room as needed if symptoms worsens;Keep appointment with -Surgeon 18 Aug 2018
[2018-08-13] MEDS ORDERED: LACTATED RINGERS 1,000 ML IVS ONE (15:25)
--- NOTE | 2018-08-13 16:48 | CT ---
EXAM DESCRIPTION: CT ABDOMEN AND PELVIS WITH CONTRAST CLINICAL HISTORY: Abdominal pain after colon resection 08/09/2018 COMPARISON: Previous CT abdomen and pelvis July 14, 2018 TECHNIQUE: CT of the abdomen and pelvis are performed during IV bolus administration of routine adult dose of nonionic iodinated contrast. No oral contrast. FINDINGS: In the lower chest, small right pleural effusion is seen. Discoid atelectasis in the right lower lobe. Similar changes in the medial right middle lobe and inferior lingula.. Heart size is normal. CT abdomen No calcified stones in the gallbladder. The liver, spleen, pancreas, gallbladder, adrenal glands, stomach and kidneys are normal in appearance. No inflammation around the pancreas. No renal stones or hydronephrosis. No significant bowel dilatation to suggest obstruction. Some small bowel loops are prominent and contain fluid measuring up to 2.5 cm. This likely represents mild postoperative ileus. Mild subcutaneous edematous changes in the flanks in the body wall and across the anterior lower abdomen. No free air or free fluid. CT pelvis Appendix is not identified. No inflammation around the cecum or terminal ileum or sigmoid colon. Patient is status post partial sigmoid resection. Minimal fluid in the pelvis adjacent to the resection site may indicate that surgery was relatively recent. No rim-enhancing fluid collection to suggest abscess. No hematoma or seroma in the pelvis. Bladder and distal ureters are negative for stones. Normal enhancement of pelvic vessels. No inguinal or lower pelvic adenopathy. Normal appearance of the uterus and ovaries. Bone window images are negative for fracture or lytic lesion. Coronal and sagittal reformatted images confirm the findings. Advanced degenerative disc disease at L5-S1 with moderately severe bilateral neural foraminal narrowing. Few tiny air bubbles in the anterior abdominal wall are seen consistent with recent surgery. IMPRESSION: Postoperative changes of recent sigmoid colonic resection. Small right pleural effusion with discoid atelectasis in the right lower lobe. This exam was performed according to our departmental dose-optimization program, which includes automated exposure control, adjustment of the mA and/or kV according to patient size and/or use of iterative reconstruction technique. Total DLP equals 1449.04 mGycm. Electronically signed by: Jin Alba MD 08/13/2018 4:45 PM CANDLE WRAPPING MACHINE OPERATOR
[2018-08-13] MEDS ORDERED: levoFLOXacin 500 MG TAB PO ONE (17:14)
[2018-08-13 18:15] VITALS: O2SAT 97
[2018-08-13 18:16] VITALS: BP 111/76
== END 2018-08-13 17:30 | disposition home or self-care (01) ==
LOC: ER 14:43
DX: L03.311 Cellulitis of abdominal wall (principal); I10 Essential (primary) hypertension; Z90.49 Acquired absence of other specified parts of digestive tract; Z87.891 Personal history of nicotine dependence
CPT/HCPCS: 74177; 80048; 80076; 81001; 82550; 82553; 83605; 84484; 85025; 85610; 85730; 87086; J0780; J2270; J7120